=== PATIENT | female | born 1955 | race Caucasian/White ===

== ENCOUNTER 2016-08-24 07:26 | Emergency (ER) | payer OTHER ==
[~2016-08-24] VITALS: Ht 160 cm; Wt 95.5 kg
[2016-08-24 07:30] VITALS: BP 180/93; PULSE 104; RESP 18; O2SAT 99
--- NOTE | 2016-08-24 07:57 | ED.REPORT ---
HPI-Extremity Problem Lower Date of Service Aug 24, 2016 ED Provider: Francesca Lee MD Nursing Notes Stated Complaint: DOG BITE/RIGHT HAND/L AND I Chief Complaint: Extremity Trauma Allergies: Coded Allergies: ampicillin (Verified Allergy, Unknown, 08/24/16) General Time Seen by MD: 07:51 Physical Exam Initial Vital Signs Vital Signs (First) Date Time Temp Pulse Resp B/P Pulse Ox O2 Delivery O2 Flow Rate FiO2 08/24/16 07:30 35.4 104 18 180/93 99 Discharge & Departure Referrals: Bull Willingham MD (PCP) Francesca Lee MD Aug 24, 2016 07:57
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
[2016-08-24] MEDS ORDERED: TdaP Vaccine 0.5 mL Inj IM ONE (09:00)
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
--- NOTE | 2016-08-24 09:57 | DRSVH ---
PROCEDURE: X-RAY RIGHT HAND, MINIMUM THREE VIEWS ([id number]) INDICATIONS: trauma TECHNIQUE: 3 views of the hand(s) acquired. COMPARISON: None. FINDINGS: Bones: No fractures or dislocations. Carpal bones are normally aligned. No suspicious bony lesions . Soft tissues: No suspicious soft tissue calcifications. Soft tissue swelling is noted of the dorsum of the hand. No radiodense foreign body identified. 30 IMPRESSION: No fracture. No osseous lesion. If symptoms and/or clinical suspicion for pathology pers ists, further assessment with repeat radiographs or advanced imaging (e.g. CT, MRI or bone scan) may be helpful for further assessment. Dictated by: Pat Cardoso MD, PhD on 08/24/2016 at 9:55 Approved by: Pat Cardoso MD, PhD on 08/24/2016 at 9:56
[2016-08-24] MEDS ORDERED: CEPH-512 PO (11:18)
[2016-08-24 11:34] VITALS: BP 138/81; PULSE 81; RESP 18; O2SAT 98
== END 2016-08-24 11:35 | disposition home or self-care (01) ==
LOC: SED 07:26
DX: S61.451A Open bite of right hand, initial encounter (principal); S61.411A Laceration without foreign body of right hand, initial encounter; W54.0XXA Bitten by dog, initial encounter; Y93.89 Activity, other specified; Y92.69 Other specified industrial and construction area as the place of occurrence of the external cause; Y99.0 Civilian activity done for income or pay; I10 Essential (primary) hypertension; E11.9 Type 2 diabetes mellitus without complications; Z88.1 Allergy status to other antibiotic agents